=== PATIENT | female | born 1955 | race Caucasian/White ===

== ENCOUNTER 2016-10-09 22:46 | Inpatient (IN) | payer OTHER ==
[~2016-10-09] VITALS: Ht 162.6 cm; Wt 80.0 kg
[~2016-10-09 22:46] MED LIST: CIPR500T87 PO; HYDR-3240 PO; METR500T PO; OMEP20TA62 PO; PARO10TA24 PO
[2016-10-09] MEDS ORDERED: HYDROmorphone 1 MG/ML, 1ML IVPush PRN (23:30)
[2016-10-09] MEDS ORDERED: SODIUM CHLORIDE FLUSH 10ML SYR IVF ONE (23:30)
[2016-10-09] MEDS ORDERED: ONDANSETRON 2MG/ML, 2ML IVPush ONE (23:30)
[2016-10-09] MEDS ORDERED: KETOROLAC 30 MG/1 ML IV ONE (23:30)
[2016-10-10] MEDS ORDERED: PROPOFOL 10 MG/ML, 20ML IVPush ONE
[2016-10-10] MEDS ORDERED: PROPOFOL 10 MG/ML, 20ML ONE ×2 (00:26→10:01)
[2016-10-10 02:30] VITALS: BP 110/71
[2016-10-10] MEDS ORDERED: BISACODYL 10 MG SUPP PR PRN (06:00)
[2016-10-10] MEDS ORDERED: POLYETHYLENE GLYCOL 17 GM PACKET PO PRN (06:00)
[2016-10-10] MEDS ORDERED: LABETALOL 5MG/ML, 20ML IV PRN ×2 (06:00→14:30)
[2016-10-10] MEDS ORDERED: ONDANSETRON ODT 4 MG PO PRN (06:00)
[2016-10-10] MEDS ORDERED: DOCUSATE 100 MG CAPSULE PO PRN (06:00)
[2016-10-10] MEDS: HEPARIN 5,000 UNITS/ML, 1ML SQ SCH ×3 (06:16→20:35)
[2016-10-10] MEDS: SODIUM CHLORIDE 0.9% 1,000 ML IV SCH ×2 (06:16→19:42)
[2016-10-10 07:44] LABS: HEMOGLOBIN 12.2 g/dL (11.7-16.4)
[2016-10-10 07:55] LABS: BLOOD UREA NITROGEN 22 mg/dL (7-18)
[2016-10-10 07:58] LABS: ASPARTATE AMINO TRANSFERASE 16 U/L (15-37)
[2016-10-10 08:16] VITALS: BP 137/84
[2016-10-10 08:41] VITALS: BP 110/59
[2016-10-10] MEDS: OMEPRAZOLE 20 MG CAPSULE.DR PO SCH (09:00)
[2016-10-10] MEDS: PAROXETINE 10 MG TABLET PO SCH (09:00)
[2016-10-10] MEDS ORDERED: ROCURONIUM 10 MG/ML ONE (10:01)
[2016-10-10] MEDS ORDERED: ONDANSETRON 2MG/ML, 2ML ONE (10:01)
[2016-10-10] MEDS ORDERED: SUCCINYLCHOLINE 20 MG/ML, 10ML ONE (10:01)
[2016-10-10] MEDS ORDERED: DEXAMETHASONE 4 MG/ML, 1ML ONE (10:01)
[2016-10-10] MEDS ORDERED: FENTANYL PF 250 MCG/5ML ONE (11:35)
[2016-10-10] MEDS ORDERED: MIDAZOLAM 1 MG/ML, 2ML ONE (11:35)
[2016-10-10] MEDS ORDERED: BUPIVACAINE/PF-EPI 0.5% 1:200K ONE ×2 (12:29→13:51)
[2016-10-10 12:53] VITALS: BP 136/82
[2016-10-10] MEDS ORDERED: ACETAMINOPHEN 325 MG TABLET PO PRN (14:30)
[2016-10-10] MEDS ORDERED: METOCLOPRAMIDE 5 MG/ML, 2ML IV PRN (14:30)
[2016-10-10] MEDS ORDERED: hydrALAzine 20 MG/ML, 1ML IV PRN (14:30)
[2016-10-10] MEDS ORDERED: FENTANYL PF 100 MCG/2ML IV PRN (14:30)
[2016-10-10] MEDS ORDERED: OXYcodone 5 MG/5 ML ORAL.SOL UDC PO PRN (14:30)
[2016-10-10] MEDS ORDERED: HYDROmorphone 1 MG/ML, 1ML IV PRN (14:30)
[2016-10-10] MEDS ORDERED: ONDANSETRON 2MG/ML, 2ML IVPush PRN (14:30)
[2016-10-10] MEDS ORDERED: HYDROcodone/APAP 10/325 MG TABLET PO PRN (16:00)
[2016-10-10] MEDS ORDERED: OXYcodone 5 MG/5 ML ORAL.SOL UDC ONE (16:03)
[2016-10-10] MEDS: CEFAZOLIN PMX 2GM/50ML 50 ML IVPB SCH (17:48)
[2016-10-10 19:46] VITALS: BP 120/74
[2016-10-10] MEDS: OXYcodone/APAP 5/325MG TABLET PO PRN (20:35)
[2016-10-10 23:55] VITALS: BP 118/72
[2016-10-11] MEDS: OXYcodone/APAP 5/325MG TABLET PO PRN ×6 (00:38→22:06)
[2016-10-11] MEDS: CEFAZOLIN PMX 2GM/50ML 50 ML IVPB SCH (00:38)
[2016-10-11 03:01] VITALS: BP 122/74
[2016-10-11 03:51] VITALS: BP 134/82
[2016-10-11] MEDS: HEPARIN 5,000 UNITS/ML, 1ML SQ SCH ×3 (04:46→20:33)
[2016-10-11] MEDS: SODIUM CHLORIDE 0.9% 1,000 ML IV SCH ×3 (04:46→20:00)
[2016-10-11 07:06] VITALS: BP 112/73
[2016-10-11] MEDS: PAROXETINE 10 MG TABLET PO SCH (09:00)
[2016-10-11] MEDS: OMEPRAZOLE 20 MG CAPSULE.DR PO SCH (09:02)
[2016-10-11 13:11] VITALS: BP 102/59
[2016-10-11] MEDS: morphine SULFATE 10 MG/ML, 1ML IVPush PRN ×2 (14:32→20:34)
[2016-10-11 20:00] VITALS: BP 98/56
[2016-10-12] MEDS: morphine SULFATE 10 MG/ML, 1ML IVPush PRN (00:44)
[2016-10-12 02:08] VITALS: BP 113/70
[2016-10-12] MEDS: OXYcodone/APAP 5/325MG TABLET PO PRN ×5 (03:47→20:11)
[2016-10-12] MEDS: SODIUM CHLORIDE 0.9% 1,000 ML IV SCH ×3 (04:00→20:00)
[2016-10-12] MEDS: HEPARIN 5,000 UNITS/ML, 1ML SQ SCH ×3 (04:35→20:12)
[2016-10-12 06:45] VITALS: BP 115/70
[2016-10-12] MEDS: PAROXETINE 10 MG TABLET PO SCH (07:47)
[2016-10-12] MEDS: OMEPRAZOLE 20 MG CAPSULE.DR PO SCH (07:47)
[2016-10-12 15:22] VITALS: BP 112/72
[2016-10-12 20:03] VITALS: BP 104/68
[2016-10-13] MEDS: OXYcodone/APAP 5/325MG TABLET PO PRN ×4 (00:09→12:12)
[2016-10-13] MEDS: HEPARIN 5,000 UNITS/ML, 1ML SQ SCH ×2 (04:00→12:00)
[2016-10-13] MEDS: SODIUM CHLORIDE 0.9% 1,000 ML IV SCH ×2 (04:00→12:00)
[2016-10-13 05:43] VITALS: BP 143/84
[2016-10-13 07:45] VITALS: BP 152/75
[2016-10-13] MEDS: PAROXETINE 10 MG TABLET PO SCH (08:05)
[2016-10-13] MEDS: OMEPRAZOLE 20 MG CAPSULE.DR PO SCH (08:05)
[2016-10-13] MEDS ORDERED: OXYC-229 PO (12:40)
[2016-10-13] MEDS ORDERED: DOCU-30 PO (12:40)
[2016-10-13] MEDS ORDERED: ASPI-621 PO (12:43)
== END 2016-10-13 12:52 | disposition hospice, home (50) | DRG 494 ==
LOC: ED 23:32 → EDIP 10-10 01:30 → 4NOR 10-10 02:28 → DCLOUNGE 10-13 12:38
PROVIDERS: ADMIT Internal Medicine; ATTEND Internal Medicine
PROC: 0QSH04Z Reposition Left Tibia with Internal Fixation Device, Open Approach (ICD-10-PCS; 2016-10-10)
PROC: 0QSJ04Z Reposition Right Fibula with Internal Fixation Device, Open Approach (ICD-10-PCS; 2016-10-10)
PROC: 0QSK04Z Reposition Left Fibula with Internal Fixation Device, Open Approach (ICD-10-PCS; principal; 2016-10-10 13:30)
DX: S82.852A Displaced trimalleolar fracture of left lower leg, initial encounter for closed fracture (principal); S82.61XA Displaced fracture of lateral malleolus of right fibula, initial encounter for closed fracture; K57.90 Diverticulosis of intestine, part unspecified, without perforation or abscess without bleeding; K21.9 Gastro-esophageal reflux disease without esophagitis; W10.8XXA Fall (on) (from) other stairs and steps, initial encounter; Y93.01 Activity, walking, marching and hiking; F32.9 Major depressive disorder, single episode, unspecified; Z83.3 Family history of diabetes mellitus; Z88.1 Allergy status to other antibiotic agents; Z82.49 Family history of ischemic heart disease and other diseases of the circulatory system; Z80.9 Family history of malignant neoplasm, unspecified; Y92.098 Other place in other non-institutional residence as the place of occurrence of the external cause; Y99.8 Other external cause status
CPT/HCPCS: 36415; 76001; 80053; 85025; 93005; 96374; 96375; C1713; J0690; J1100; J1170; J1644; J1885; J2250; J2405; J2704; J3010; C1769; J0330; J2270; J7030